=== PATIENT | female | born 1985 | race Caucasian/White ===

== ENCOUNTER 2020-11-26 15:18 | Outpatient (CLI) | payer BC, MEDICAID, SELFPAY ==
--- NOTE | 2020-11-26 15:25 | US_ITS ---
WS: [id number] EARLY OBSTETRICAL ULTRASOUND (<14 WEEKS). HISTORY: COMPARISON: None available. Single intrauterine gestational sac is identified. Cardiac activity at 180 BPM. [place]-rump length andrea sures 4.5 cm which corresponds to a gestation of 11w2d. Small subchorionic hemorrhage.Small amount of complex fluid along the inferior gestational sac. No free fluid. Normal size ovaries with no mass. Hypoechoic mass along the posterior myometrium about the gestational sac. Mass measures 2.0 x 1.7 x 2 .1 cm and is most consistent with a small fibroid. There are additional smaller hypoechoic nodules wi thin the myometrium suspicious for fibroids. The cervix is closed and normal length of 4.3 cm. US/US OB <= 14 weeks fetus [id number] IMPRESSION: 1. Single intrauterine gestation of 11 weeks 2 days with EDC of 06/15/2021. 2. Small uterine fibroids. The largest measures 2.0 x 1.7 x 2.1 cm and abuts t he posterior gestational sac. 3. Small subchorionic hemorrhage.
== END 2020-11-26 15:19 | disposition home or self-care (01) ==
LOC: RAD 15:21
PROVIDERS: PCP Family Medicine; Visit Provider Electrodiagnostic Medicine
DX: O46.91 Antepartum hemorrhage, unspecified, first trimester (principal); Z3A.11 11 weeks gestation of pregnancy
CPT/HCPCS: 76801

== ENCOUNTER 2021-01-23 15:29 | Outpatient (CLI) | payer BC, MEDICAID, SELFPAY ==
--- NOTE | 2021-01-23 15:37 | US_ITS ---
WS: [id number] ULTRASOUND OB COMPLETE TECHNIQUE: Complete ultrasound. CLINICAL INFORMATION: SUPERVISION,NORMAL MULTIPAROUS/ANATOMY SCAN COMPARISON: None. FINDINGS: Closed cervix measuring 4.2 cm Single interuterine gestation is identified with breech presentation. Placenta is anterior fundal. Placenta grade 0. Normal amniotic fluid volume. cardiac activity: 144 BPM. AGA: 19w4d WILIAM by ultrasound: 06/15/2021 Estimated weight: 298 g., %. BDP: 4.5 cm = 19w5d HC: 16.9 cm = 19w4d AC: 14.1 cm = 19w3d FEMUR LENGTH: 3.1 cm = 19w4d Anatomic survey: profile and 3 vessel cord not well visualized. Lateral ventricles measuring up per end of the range but within normal limits. Anatomic survey is otherwise normal. Normal stomach. Kidneys and bladder are normal. Normal 4 chamber heart. Normal spine. Intracranial contents are otherwise normal. Normal posterior fossa and cisterna magna. US/US OB >= 14 weeks fetus [id number] IMPRESSION: 1. Single intrauterine with visualized cardiac activity. AGA 19w4d w ith WILIAM 06/15/2021. 2. Placenta is anterior. No evidence of abruption or previa. 3. profile and 3 vessel cord not well visualized. This can be followed u p in one to 2 weeks for better anatomic detail. 4. Lateral ventricles measure at the upper end of the range but within normal limits. 5. Anatomic survey is otherwise normal. 6. Normal amniotic fluid volume.
== END 2021-01-23 15:30 | disposition home or self-care (01) ==
LOC: RAD 15:33
PROVIDERS: PCP Family Medicine; Visit Provider Family Medicine
DX: Z36.89 Encounter for other specified antenatal screening (principal); Z3A.19 19 weeks gestation of pregnancy
CPT/HCPCS: 76805

== ENCOUNTER 2021-03-12 09:23 | Outpatient (CLI) | payer BC, MEDICAID, SELFPAY ==
--- NOTE | 2021-03-12 09:27 | US_ITS ---
WS: [id number] ULTRASOUND OB LIMITED TECHNIQUE: Limited ultrasound examination of the fetus. CLINICAL INFORMATION: SUPERVISION NORMAL COMPARISON: January 23, 2021 FINDINGS: Cervix measures 4.3 cm Single interuterine gestation. presentation is vertex Placental location is anterior. Placenta grade: 0. heart rate 138 BPM. Anatomy: Limited anatomy follow-up evaluation is normal today with normal 3 vessel cord, profile, and la [place]eral ventricles [place] [id number] IMPRESSION: Limited anatomy follow-up evaluation is normal today with normal 3 vessel cord, profile, and lateral ventricles
== END 2021-03-12 09:24 | disposition home or self-care (01) ==
PROVIDERS: PCP Family Medicine; Visit Provider Family Medicine
DX: Z34.80 Encounter for supervision of other normal pregnancy, unspecified trimester (principal)
CPT/HCPCS: 76816

== ENCOUNTER 2021-06-11 17:40 | Outpatient (CLI) | payer BC, MEDICAID, SELFPAY ==
[2021-06-11] VITALS (8 sets, daily range): BP systolic 104–131; BP diastolic 56–84; PULSE 71–94; RESP 18; BMI 40.2
== END 2021-06-11 20:10 | disposition home or self-care (01) ==
LOC: OPOB 17:44 → OBGYN 17:49
PROVIDERS: PCP Family Medicine; Visit Provider Family Medicine
DX: O26.899 Other specified pregnancy related conditions, unspecified trimester (principal); Z3A.00 Weeks of gestation of pregnancy not specified; R10.9 Unspecified abdominal pain
CPT/HCPCS: 59025; 99211

== ENCOUNTER 2021-06-17 13:36 | Outpatient (CLI) | payer BC, MEDICAID, SELFPAY ==
[2021-06-17 13:49] VITALS: BP 139/76; PULSE 82
[2021-06-17 13:51] VITALS: TEMP 36.6
[2021-06-17 14:04] VITALS: BP 131/66; PULSE 73
== END 2021-06-17 14:25 | disposition home or self-care (01) ==
LOC: OPOB 13:37 → OBGYN 13:38
PROVIDERS: PCP Family Medicine; Visit Provider Family Medicine
DX: O26.899 Other specified pregnancy related conditions, unspecified trimester (principal); Z3A.00 Weeks of gestation of pregnancy not specified
CPT/HCPCS: 59025; 99211

== ENCOUNTER 2021-06-17 23:09 | Inpatient (IN) | payer BC, MEDICAID, SELFPAY ==
[2021-06-17] VITALS (17 sets, daily range): BP systolic 100–121; BP diastolic 50–74; PULSE 63–82; RESP 15; TEMP 36.5; BMI 39.9
[2021-06-17 20:14] LABS: Basophils % 0.1 %; Eosinophils # 0.1 10^3/uL (0.0-0.8); Eosinophils % 0.7 %; Hematocrit 36.1 % (37.0-47.0); Hemoglobin 12.2 g/dL (11.5-15.3); Lymphocytes # 1.9 10^3/uL (0.8-4.8); Lymphocytes % 22.2 %; Mean Corpuscular HGB Conc 33.8 g/dL (30.0-36.0); Mean Corpuscular Volume 88.9 fl (81-99); Mean Platelet Volume 10.5 fL (7.4-10.4); Monocytes # 0.7 10^3/uL (0.2-0.9); Monocytes % 7.7 %; Neutrophils # 6.02 10^3/uL (1.8-7.7); Neutrophils % 69.2 %; Nucleated Red Blood Cells % 0 %; Platelet Count 223 10^3/cmm (130-400); Red Blood Count 4.06 10^6/uL (4.1-5.3); Red Cell Distribution Width 13.2 % (12.1-15.1); White Blood Count 8.7 10^3/uL (4.0-10.0)
[2021-06-17] MEDS: dextrose 5%-lactated ringers 1,000 ML 125 ML IV (20:52)
[2021-06-17] MEDS: oxytocin 30 UNIT/500 ML BAG IV (20:53)
--- NOTE | 2021-06-17 21:31 | PM.HP ---
Providers/Chief Complaint Primary Care Provider: Bishop Wilde MD Chief Complaint: IOL History of Present Illness Ashley Tierney is a 35 year old at 40.1 weeks gestation by 11-week ultrasound with unknown LMP. Her is complicated by hypothyroidism, history of pericarditis, advanced maternal age. The patient presents to labor and delivery triage on the evening of 06/17/2021 at approximately 7:30 PM for a scheduled induction secondary to postdates. The patient has been feeling well. She denies any chest pains, shortness of breath, fever, cough, leakage of fluid, vaginal bleeding. Her cervical exam was 3/50/-3 upon arrival. Medications/Allergies Home Medications Medication Instructions Recorded Confirmed Last Taken Type levothyroxine 88 mcg PO DAILY 06/17/21 06/17/21 06/17/21 History Allergies Allergy/AdvReac Type Severity Reaction Status Date / Time No Known Allergies Allergy Verified 06/17/21 20:13 PFSH Acute PFSH: Social History (Updated 06/17/21 @ 21:34 by Bishop Wilde MD) Smoking and tobacco status: former smoker Alcohol intake: never Substance/Drug Use: never Female Reproductive History: : 4 Vitals/I&O/Wt Last Vital Signs Temp 97.7 F 06/17/21 19:42 Pulse 69 06/17/21 21:27 BP 109/60 06/17/21 21:27 Weight last 48 hrs Weight 240 lb Weight 240 lb Physical Exam Narrative: EXAM NARRATIVE: General: Alert and oriented x3 Eyes: Pupils equal round and reactive to light and accommodation Mouth: Mucous membranes moist, pharynx non-erythematous Cardiac: Regular rate and rhythm without murmurs Lungs: Clear to auscultation bilaterally without wheezes, crackles or rhonchi Abdomen: Soft, non-tender, fundus consistent with gestational age Extremities: Trace edema in the bilateral lower extremities Data : 06/17/21 20:00 A&P Additional A&P Information The patient is doing well at this time. heart tones are in the mid 140s with moderate variability and good accelerations. She has a category 1 tracing. The patient had sporadic contractions upon arrival. She will be started on IV Pitocin for induction of labor. She has a favorable cervix. She is GBS negative. She is COVID-negative. Routine induction discussion was had and all questions were answered. The patient is in agreement with the current plan of care. The patient may have a laboring epidural when she is starting to make cervical change. Attestations Medical Necessity Statement*: The patient will be here for greater than 2 midnights due to routine intrapartum and management of labor and delivery. Coding Level of Care Code Acute Seismic Computer for Anny Love
[2021-06-18] VITALS (56 sets, daily range): BP systolic 84–147; BP diastolic 47–89; PULSE 58–118; RESP 16–18; TEMP 36.2–37.1; O2SAT 94–99
[2021-06-18] MEDS: lactated ringers 1,000 ML 999 ML IV ×2 (01:19→02:24)
--- NOTE | 2021-06-18 02:48 | P.ANESASSM_ITS ---
Pre-Anesthetic Assessment Pre-Anesthetic Assessment: Height/Weight: Height 1.65 m Weight 108.862 kg Temp Pulse Resp BP Pulse Ox 97.7 F 74 15 146/74 99 06/17/21 19:42 06/18/21 02:43 06/17/21 19:45 06/18/21 02:38 06/18/21 02:43 Preop Diagnosis: Labor pain Proposed Procedure: BARBARA Was Beta Isidro taken within 24 hours: N/A Was Clonidine taken within 24 hours: N/A Social: Social History: No alcohol and No tobacco Exam: Pre-Anes Outpt Exam: alert, oriented x 3, clear to auscultation bilaterally and regular rate & rhythm Airway: Submandibular: WNL Cervical ROM: WNL MP: 2 Dentition: Full History/ROS: No significant history except as noted and No significant complaints Pulmonary: Pulmonary: None reported CV/HEM: CV/HEM: None reported : : None reported Hepatic: Hepatic: None reported GI: GI: None reported Metabolic: Metabolic: Thyroid Musc/skel: Musc/skel: None reported Neuropsych: Neuropsych: None reported Anesthetic Plan: ASA status: 2 Anesthesia: Anesthesia Evaluation and Regional (specify below) Risk of > 500 ml blood loss (7ml/kg in children): No Medications/Allergies Current Medications: Current Medications Generic Name Dose Route Start Last Admin Trade Name Freq PRN Reason Stop Dose Admin Dextrose/Lactated Ringer's 1,000 mls @ 125 m ls/hr 06/17/21 20:00 06/18/21 00:35 Dextrose 5%-Lact ated Ringers IV 125 mls/hr .Q8H LUNA Infusion Oxytocin 30 unit in 500 ml s @ 1 mls/hr 06/17/21 20:00 06/18/21 00:35 Pitocin IV 10 milliunit/min .Q24H LUNA 10 mls/hr Titration Protocol 1 MILLIUNIT/MIN Lactated Ringer's 1,000 mls @ 999 m ls/hr 06/18/21 01:13 06/18/21 01:19 Lactated Ringers IV 999 mls/hr .Q1H1M PRN Administration LABOR PAIN PFSH Anesthesia PFSH: Social History (Updated 06/17/21 @ 21:34 by Bishop Wilde MD) Smoking and tobacco status: former smoker Alcohol intake: never Substance/Drug Use: never Female Reproductive History: : 4 Data Anesthesia CBC & Chem 7: 06/17/21 20:00 Other Labs: Laboratory Results - last 48 hr 06/17/21 20:00 WBC 8.7 RBC 4.06 L Hgb 12.2 Hct 36.1 L MCV 88.9 MCH 30.0 MCHC 33.8 RDW 13.2 Plt Count 223 MPV 10.5 H Neut % (Auto) 69.2 Lymph % (Auto) 22.2 [place] % (Auto) 7.7 Eos % (Auto) 0.7 Baso % (Auto) 0.1 Neut # (Auto) 6.02 Lymph # (Auto) 1.9 [place] # (Auto) 0.7 Eos # (Auto) 0.1 Baso # (Auto) 0.0 Nucleated RBC % (auto) 0 Nucleated RBCs # 0.0 Cardiac Studies: No Data to Display
--- NOTE | 2021-06-18 02:50 | ANES.PROC ---
Anesthesia Procedures Procedure/Date: 06/18/21 Epidural: Time Out Performed: Yes Consents Signed: Procedure Consent Consent: from patient Lumbar Level: L3-L4 Epidural position: sitting Epidural procedure: sterile prep of area, 1% lidocaine to numb the area, 18 g needle, negative for paresthesia passed, test dose given, 1.5% xylocaine 1:200k epi (5cc), 0.2% Ropivacaine bolus ml (4cc and Fent 100 mcg), no systemic response, sterile dressing applied, L.U.D. no apparent complications and 0.2% Ropiavacaine @ mls/hr (13cc/hour. SINDHU at 8cm. Pt shannon well)
--- NOTE | 2021-06-18 03:05 | P.ANES_ITS ---
Anesthesia Procedures Procedure/Date: 06/18/21
--- NOTE | 2021-06-18 03:05 | ANES.PROC ---
Anesthesia Procedures Procedure/Date: 06/18/21
[2021-06-18] MEDS: diphenhydrAMINE 50 mg/mL SDV 1mL 25 MG IVP (04:15)
[2021-06-18] MEDS: dextrose 5%-lactated ringers 1,000 ML 125 ML IV (05:37)
--- NOTE | 2021-06-18 06:45 | PM.DELIVERY ---
Delivery Note: Date of delivery: June 18, 2021 Pre-delivery diagnoses: 1. Intrauterine at 40.2 weeks gestation 2. Hypothyroidism 3. History of pericarditis 4. Advanced maternal age Post-delivery diagnoses: 1. Intrauterine status post spontaneous vaginal at 40.2 weeks gestation 2. Hypothyroidism 3. History of pericarditis 4. Advanced maternal age 5. Delivery of healthy infant female weighing 8 pounds 3 ounces with Apgars of 9 and 10 Procedure: Spontaneous vaginal delivery Second-degree vaginal wall laceration with repair Op report anesthesia: Epidural Estimated blood loss (mL): 125 Findings: Ashley Tierney is a 35 year old G4 now P4 status post spontaneous vaginal delivery at 40.2 weeks gestation by 11-week ultrasound with unknown LMP. Her was complicated by hypothyroidism, history of pericarditis, advanced maternal age. Pre-Delivery Course: The patient was admitted to labor and delivery triage on the evening of 06/17/2021 at approximately 7:30 PM for a scheduled induction of labor. She was 3 cm dilated at the time of presentation. She was started on IV Pitocin. The patient had a reactive strip with a category 1 tracing, but had occasional decelerations that were not repetitive. These improved with position changes. The patient made good change and SROM took place at 4:30 AM on 06/18/2021. Clear fluid was noted. The patient continued to change well and she was complete by 6 AM on 06/18/2021. Delivery: The patient began pushing at 6:06 AM on 06/18/2021. The patient pushed well and the delivered in the OA position at 6:17 AM on 06/18/2021. There was no nuchal cord. The left shoulder was the anterior shoulder and it delivered with ease. The rest of the delivered with ease. The infant's mouth and nose were bulb suctioned by myself and the infant was crying immediately upon delivery. The was placed on the mother's chest where the nurses were waiting to care for her. The cord was clamped by myself after approximately 1 minute and the infant's father cut the cord. Cord blood was obtained. The cord was then drained of blood and traction was placed on the umbilical cord. The uterus was massaged. The placenta delivered at 6:23 AM on 06/18/2021. The placenta was noted to be intact with a central umbilical cord insertion site. The uterus was massaged and was noted to be firm and midline. The cervix was inspected and no lacerations were noted. The vaginal was inspected and there was a first-degree laceration in the right upper vaginal wall that was not bleeding and did not need repair. There was a second-degree laceration in the midline vaginal wall that did not extend near the rectum. The epidural provided adequate anesthesia. 3-0 Vicryl was used to repair the laceration. The patient tolerated this well. No sutures were noted in the rectum. The patient was noted to have some steady bleeding after this. For this reason she was started on TXA. Her bleeding is starting to decrease well. Currently both the mother and infant are doing well. 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
[2021-06-18] MEDS: prenatal vitamin Capsule 1 CAP PO (08:31)
[2021-06-18] MEDS: ibuprofen 800 mg tablet PO ×3 (08:31→20:31)
[2021-06-18] MEDS: docusate sodium 100 mg Capsule PO (08:32)
--- NOTE | 2021-06-18 12:48 | ANE.PACU2 ---
Inpatient post-anesthesia follow up: Airway intact: Yes Vital signs: Temperature 98.7 F Pulse Rate 69 Respiratory Rate 16 Blood Pressure 127/89 Pulse Oximetry 99 Oxygen Delivery Me thod Room Air Oxygen Flow Rate Fraction of Inspir ed Oxygen Hydration adequate: Yes Nausea and vomiting: No Pain level: 1 Mental status: Baseline
--- NOTE | 2021-06-18 15:33 | ANE.PACU2 ---
Inpatient post-anesthesia follow up: Airway intact: Yes Vital signs: Temperature 98.2 F Pulse Rate 85 Respiratory Rate 18 Blood Pressure 132/82 Pulse Oximetry 99 Oxygen Delivery Me thod Room Air Oxygen Flow Rate Fraction of Inspir ed Oxygen Hydration adequate: No Nausea and vomiting: No Pain level: 7 Mental status: Baseline Additional Comments: S/P with difficult epidural placement on 06/17/21 per pt history. Now expriencing headache, neck pain and ear pressure which resolve when recumbent. Likely Post Dural Puncture Headache. Disc options including Blood Patch; pt elects to try conservative measures including hydration and caffeine, especially in light of reported difficulty with placement. I discussed the transfer of caffeine into breast milk. Will recheck patient in AM.
[2021-06-18] MEDS: sodium chloride 0.9% 1,000 ML 999 ML IV (15:37)
[2021-06-18 19:06] LABS: Hematocrit 35.4 % (37.0-47.0); Hemoglobin 11.7 g/dL (11.5-15.3); Mean Corpuscular HGB Conc 33.1 g/dL (30.0-36.0); Mean Corpuscular Hemoglobin 29.7 pg (28.0-34.0); Mean Corpuscular Volume 89.8 fl (81-99); Mean Platelet Volume 10.7 fL (7.4-10.4); Platelet Count 206 10^3/cmm (130-400); Red Blood Count 3.94 10^6/uL (4.1-5.3); Red Cell Distribution Width 13.1 % (12.1-15.1); White Blood Count 10.8 10^3/uL (4.0-10.0)
[2021-06-19 00:35] VITALS: BP 122/78; PULSE 64; RESP 15
--- NOTE | 2021-06-19 04:15 | PC.NURSE ---
This RN rounded on patient and found her to bed asleep in the bed holding . Patient was woke, educated on safe infant sleep. was swaddled and placed in crib. Patient verbalized understanding of safe sleep.
[2021-06-19 04:16] VITALS: BP 105/64; PULSE 74; RESP 16; O2SAT 97
[2021-06-19] MEDS: acetaminophen 325 mg Tablet 650 MG PO (04:54)
--- NOTE | 2021-06-19 06:58 | PM.DCS ---
Discharge Providers Date of Admission: 06/17/21 23:09 Date of Discharge: June 19, 2021 Attending Provider at Admission: Bishop Wilde MD Attending Provider at Discharge: Bishop Wilde MD Primary Care Provider: Bishop Wilde MD Diagnoses at Discharge Other Information Additional DC diagnoses/information: 1. Intrauterine status post spontaneous vaginal at 40.2 weeks gestation 2. Hypothyroidism 3. History of pericarditis 4. Advanced maternal age 5. Delivery of healthy infant female weighing 8 pounds 3 ounces with Apgars of 9 and 10 Reason for Visit Reason for Visit: IOL Hospital Course Hospital Course Pre-Delivery Course: The patient was admitted to labor and delivery triage on the evening of 06/17/2021 at approximately 7:30 PM for a scheduled induction of labor. She was 3 cm dilated at the time of presentation. She was started on IV Pitocin. The patient had a reactive strip with a category 1 tracing, but had occasional decelerations that were not repetitive. These improved with position changes. The patient made good change and SROM took place at 4:30 AM on 06/18/2021. Clear fluid was noted. The patient continued to change well and she was complete by 6 AM on 06/18/2021. Delivery: The patient began pushing at 6:06 AM on 06/18/2021. The patient pushed well and the infant delivered in the OA position at 6:17 AM on 06/18/2021. There was no nuchal cord. The left shoulder was the anterior shoulder and it delivered with ease. The rest of the delivered with ease. The 's mouth and nose were bulb suctioned by myself and the was crying immediately upon delivery. The infant was placed on the mother's chest where the nurses were waiting to care for her. The cord was clamped by myself after approximately 1 minute and the infant's father cut the cord. Cord blood was obtained. The cord was then drained of blood and traction was placed on the umbilical cord. The uterus was massaged. The placenta delivered at 6:23 AM on 06/18/2021. The placenta was noted to be intact with a central umbilical cord insertion site. The uterus was massaged and was noted to be firm and midline. The cervix was inspected and no lacerations were noted. The vaginal was inspected and there was a first-degree laceration in the right upper vaginal wall that was not bleeding and did not need repair. There was a second-degree laceration in the midline vaginal wall that did not extend near the rectum. The epidural provided adequate anesthesia. 3-0 Vicryl was used to repair the laceration. The patient tolerated this well. No sutures were noted in the rectum. The patient was noted to have some steady bleeding after this. For this reason she was started on TXA. Her bleeding decreased well. : The patient has been doing well . She did have some headaches that seem to improve with caffeine intake. Anesthesia saw her regarding this. They did not feel that it was a spinal headache. If her headaches are getting worse, we will have her be reevaluated for this. Her bleeding is decreasing well. Her pain is well controlled. She is ambulating, voiding, passing gas and tolerating food by mouth. All questions were answered. Routine discharge instructions were discussed. The patient is in agreement with discharge home at this time. Physical Exam Narrative: EXAM NARRATIVE: General: Alert and oriented x3 Cardiac: Regular rate and rhythm without murmurs Lungs: Clear to auscultation bilaterally without wheezes, crackles or rhonchi Abdomen: Soft, mild tenderness over the uterus. Fundus is firm and 2 cm below the umbilicus. Extremities: Trace edema Urinary Catheter Management^: Blankenship Latex: Cath Placed During This Visit: yes, but has since been removed by the nurse Reason for Continuing Indwelling Catheter: Other Urinary Catheter Date of Insertion: 06/18/21 Urinary Catheter Time of Insertion: 03:23 Date Urinary Catheter Removed: 06/18/21 Time Urinary Catheter Discontinued: 06:04 Discharge Data Data Completed and Pending: Labs from last 24 hours 06/18/21 18:50 WBC 10.8 H RBC 3.94 L Hgb 11.7 Hct 35.4 L MCV 89.8 MCH 29.7 MCHC 33.1 RDW 13.1 Plt Count 206 MPV 10.7 H Vitals: Last Vital Signs Temp 98.5 F 06/18/21 17:30 Pulse 74 06/19/21 04:16 Resp 16 06/19/21 04:16 BP 105/64 06/19/21 04:16 Pulse Ox 97 06/19/21 04:16 Discharge Plan Discharge Patient Disposition: Home Condition: Good Prescriptions: New ibuprofen 800 mg Tablet 800 mg PO TID Qty: 30 RF: 0 ferrous sulfate 325 mg (65 mg iron) tablet 325 mg PO BID Qty: 20 RF: 0 -U 106.5-1 mg Capsule 1 cap PO DAILY Qty: 30 RF: 0 Continued levothyroxine 88 mcg Tablet 88 mcg PO DAILY RF: 0 Discharge Orders: Discharge Order (Routine); Ordered 06/19/21 Ordered By: Bishop Wilde Referrals: Bishop Wilde MD [Primary Care Provider] - 07/29/21 9:30 am (Your [address] Wilde is July 29 @ 9:30 am.) Discharge Diet: Regular Discharge Activity: Increase activity as tolerated Patient Instructions: Depression (DC), Perineal Care (DC), Preeclampsia and Eclampsia After Delivery (GEN), Hemorrhage (DC), OB Food/Drug Interaction Guide, OB Care at Home, Opioid Safety, OB Vaginal Deliveries Activity Restrictions/Additional Instructions: Nothing per vagina for 6 weeks. If you have any concerns for complications regarding your headache, especially if you have fevers, please seek immediate medical attention. Discharge Attestations Time Spent in Discharge Care*: greater than 30 min Quality Metrics Clinical Quality Measures During this hospital stay, did patient experience: None Coding Level of Care Code Acute Chg FW DC note
[2021-06-19] MEDS: lanolin oint 7 gm 1 APPLIC TOPICAL (08:14)
[2021-06-19] MEDS: docusate sodium 100 mg Capsule PO (08:14)
[2021-06-19] MEDS: prenatal vitamin Capsule 1 CAP PO (08:14)
[2021-06-19 08:15] VITALS: BP 116/73; PULSE 76; RESP 16; TEMP 36.7; O2SAT 97
[2021-06-19] MEDS: ibuprofen 800 mg tablet PO (08:15)
[2021-06-19 09:15] VITALS: BP 116/73; PULSE 76; RESP 16; TEMP 36.7; O2SAT 97
== END 2021-06-19 09:25 | disposition home or self-care (01) | DRG 807 ==
LOC: OPOB 23:09 → OBGYN 23:09
PROVIDERS: Admitting Provider Family Medicine; PCP Family Medicine; Visit Provider Family Medicine
DX: O48.0 Post-term pregnancy (principal); Z37.0 Single live birth; Z3A.40 40 weeks gestation of pregnancy; O99.824 Streptococcus B carrier state complicating childbirth; O99.284 Endocrine, nutritional and metabolic diseases complicating childbirth; E03.9 Hypothyroidism, unspecified; O75.89 Other specified complications of labor and delivery; D25.9 Leiomyoma of uterus, unspecified
CPT/HCPCS: 36415; 51702; 59409; 85025; 85027; J1200; J2795; J3010; J7030

== ENCOUNTER → 2024-01-30 10:59 | Outpatient (BNVA) | payer MEDICAID, SELFPAY | PROVIDERS: PCP Family Medicine; Visit Provider Family Medicine | DX: Z00.00 Encounter for general adult medical examination without abnormal findings (principal); Z51.81 Encounter for therapeutic drug level monitoring; E03.9 Hypothyroidism, unspecified | CPT/HCPCS: 80053; 84439; 84443; 85025 ==